=== PATIENT | male | born 1970 | race Hispanic/Latino ===

== ENCOUNTER 2020-04-07 01:03 | Outpatient (CLI) | payer OTHER, SELFPAY ==
[2020-04-07 18:37] LABS: SARS-CoV-2 RNA PCR Negative
== END 2020-04-07 01:04 | disposition home or self-care (01) ==
LOC: ANHCOVIDDT 01:03
PROVIDERS: PCP Family Medicine; Visit Provider Internal Medicine Critical Care Medicine
DX: Z01.818 Encounter for other preprocedural examination (principal); Z20.828 Contact with and (suspected) exposure to other viral communicable diseases
CPT/HCPCS: 87635; C9803; U0003

== ENCOUNTER 2020-04-10 13:10 | Outpatient (CLI) | payer OTHER, SELFPAY ==
--- NOTE | 2020-04-16 20:05 | SLEEP_ITS ---
Basic Nocturnal Polysomnogram. DATE OF STUDY: 04/10/2020 ORDERING PHYSICIAN: Dr. Chris Luna. REASON FOR THIS STUDY: Obstructive sleep apnea syndrome. HISTORY: This patient is a 49-year-old male, 66 inches tall, weighing 182 pounds with a body mass index of 29.4. He has a history of obstructive sleep apnea syndrome with a prior study on 08/29/2016, showing mild obstructive sleep apnea syndrome with an AHI of 5.5 associated with [id number] continuous snoring and oxygen desaturation. All of the events occurred in the non-supine position. The lowest saturation was 79%. He has had weight loss and presents now for a repeat study to reevaluate his sleep apnea. Actually at that time, his body mass index was the same, it was 30.8 and his weight was 185 pounds, so he is only off by 3 pounds. He says that he has lost weight and that when he does not use his CPAP, he does not have any apneas, hypopneas or daytime sleepiness. He does not use his CPAP regularly. His interest is in getting rid of this CPAP machine altogether. He has not been bothered with sleep apnea for about a year. He feels rested and energetic in the morning. He occasionally snores rarely, it is loud enough for others to complain about it. He does not awaken at night with heartburn, belching, or coughing. He does not awaken at night with coughing, he does not gasp for breath at night or have breathing problems at night witnessed by others. He does not sweat excessively at night. He denies his heart pounding excessively at night or falling asleep during the day. He does not fall asleep involuntarily or while driving. He does not have loss of muscle tone with strong emotion. He does not feel paralyzed on waking or falling asleep. He does not have vivid dreamlike scenes upon awakening or falling asleep. He occasionally remembers dreams. He does not have racing thoughts, feelings of sadness, depression or anxiety. He does not notice parts of his body jerking at night. He does not grind his teeth at night and does not have pain during the night or the day. He does not wake up feeling tired or stiff. Normal bedtime is between 9:00 and 10:00 p.m., taking 30 minutes to fall asleep waking a few times at night to urinate. He will also get a snack and a drink. He wakes in the morning at 06:00 a.m. He does take naps. A short nap is refreshing. MEDICAL COMORBIDITIES: Seasonal allergies, hypertension, and hyperlipidemia. MEDICATIONS: 1. Irbesartan. 2. Atorvastatin. 3. Zyrtec. HABITS: No tobacco. Caffeine, 2 cups a day. Wine 3 glasses a week. DESCRIPTION OF THE STUDY: On the [place] Sleepiness Scale, his score is 1. This was conducted as a full night attended nocturnal polysomnogram using the [employer] multiple channel system including EOG, EEG, submental EMG, EKG, nasal and oral airflow using thermistors and nasal pressure sensors, chest and abdominal belts, body position data and pulse oximetry. This study was scored using [facility] guidelines. Duration of the study was 444.3 minutes. The sleep time was 314.5 minutes. The sleep efficiency was 70.8%, which is low. Sleep latency was prolonged at 45.4 minutes. REM latency was short at 51.4, which would suggest hypersomnolence. He had 21 awakenings and spent 21.2% of the study awake after sleep onset. Sleep architecture showed 5.5% stage 1 sleep, 59.7% stage 2 sleep, 5% stage 3 sleep and 8.6% stage REM. He spent 9.4% of the study supine. The remainder was non-supine. Supine REM only accounted for 2.9% of the study. The overall CMS apnea-hypopnea index was 1.3 all obstructive events. He had no events in supine REM, 1 obstructive hypopnea in non-supine REM, 6 obstructive hypopneas in supine non-REM for an index of 14.1. The supine index was 9.6.
== END 2020-04-10 13:11 ==
LOC: ANHCSM 04-17 13:10
PROVIDERS: PCP Family Medicine; Visit Provider Family Medicine
DX: G47.33 Obstructive sleep apnea (adult) (pediatric) (principal)
CPT/HCPCS: 95810